=== PATIENT | female | born 1975 | race Caucasian/White ===

== ENCOUNTER 2018-01-03 12:35 | Outpatient (CLI) | payer BC ==
--- NOTE | 2018-01-03 15:02 | ULT ---
RIGHT LOWER EXTREMITY VENOUS ULTRASOUND WITH DOPPLER: History: Right leg pain. Edema. Comparison: None. Technique: Grayscale, color flow, doppler imaging and spectral waveform analysis performed of the rig ht lower extremity venous system. FINDINGS: There is compressibility, presence of flow, and augmentation in the common femoral vein, femoral vein , and popliteal vein. There is flow in the greater saphenous vein and profunda vein. There is lack of flow and lack of compressibility in the posterior tibial vein. IMPRESSION: Thrombus in the right lower extremity posterior tibial vein. Results of study discussed with Dr. Gayathri Wolfe -12-18 at 1:32 pm. POS: [facility]
== END 2018-01-03 12:36 | disposition home or self-care (01) ==
LOC: SCSULT 12:35
PROVIDERS: ATTEND Family Medicine
DX: M79.604 Pain in right leg (principal); I82.441 Acute embolism and thrombosis of right tibial vein

== ENCOUNTER 2018-01-04 09:21 | Emergency (ER) | payer BC ==
[~2018-01-04 09:21] MED LIST: Iopamidol 370 76% 100 ML VIAL ONE
[2018-01-04] MEDS ORDERED: methylPREDNISolone Sod Succ/PF 125 MG/2 ML VIAL ONE (09:45)
[2018-01-04] MEDS ORDERED: diphenhydrAMINE 50 MG/ML VIAL ONE (09:45)
[2018-01-04] MEDS ORDERED: Water For Inject, Bacteriostat 30 ML ONE (09:46)
[2018-01-04] MEDS ORDERED: Famotidine/PF 20 mg/2ml Vial ONE (09:47)
[2018-01-04 09:57] LABS: #Basophils 0.1 thou/uL (0.0-0.2); #Eosinphils 0.1 thou/uL (0.0-0.7); #Lymphocytes 2.5 thou/uL (1.20-3.40); #Monocytes 0.5 thou/uL (0.11-0.59); #Neutrophils 6.1 thou/uL (1.40-6.50); %Eosinophils 1.2 % (0.0-10.0); %Monocytes 5.3 % (0.0-10.0); %Neutrophils 65.6 % (42.0-75.0); Mean Corpuscular HGB CONC 35.1 g/dL (32.0-36.0); Mean Corpuscular Volume 88.3 fl (81.0-99.0); Platelet Count 245 thou/uL (130-400); RBC Distribution Width 10.9 % (11.5-14.5); Red Blood Cell (RBC) Count 4.85 mill/uL (4.20-5.40); White Blood Cell (WBC) Count 9.3 thou/uL (4.8-10.8)
[2018-01-04 10:08] LABS: ALT (SGPT) 15 U/L (8-55); AST (SGOT) 18 U/L (5-34); Alkaline Phosphatase 42 U/L (40-150); Anion Gap 12 mmol/L (10-20); BUN (Urea Nitrogen) 10 mg/dL (7.0-18.7); Bilirubin, Total 0.5 mg/dL (0.2-1.2); CK (CPK) 85 U/L (29-168); Calc. Creatinine Clearance 0 mL/min (70-130); Calcium 9.2 mg/dL (7.8-10.44); Carbon Dioxide 24 mmol/L (22-29); Chloride 107 mmol/L (98-107); Estimated GFR-MDRD Greater than 90; Globulin 3.3 g/dL (2.4-3.5); Glucose 118 mg/dL (70-105); Lipase 37 U/L (8-78); Protein, Total 7.3 g/dL (6.0-8.3); Sodium 139 mmol/L (136-145)
[2018-01-04 10:11] LABS: CKMB 0.8 ng/mL (0-6.6); Troponin I Less than 0.010 ng/mL (< 0.028)
[2018-01-04 12:38] LABS: Troponin I Less than 0.010 ng/mL (< 0.028)
--- NOTE | 2018-01-04 13:39 | CT ---
CT ARTERIOGRAM CHEST WITH IV CONTRAST AND 3D MIP IMAGING: HISTORY: Chest pain. DVT. Dyspnea. FINDINGS: There is good contrast opacification of the pulmonary arteries and thoracic aorta with normal branchi ng of the great vessels. No pleural fluid, pneumothorax, or mediastinal adenopathy. IMPRESSION: No CT evidence of pulmonary embolus. POS: [facility]
== END 2018-01-04 13:06 | disposition home or self-care (01) ==
LOC: SCSER 09:21
DX: R07.89 Other chest pain (principal); F32.9 Major depressive disorder, single episode, unspecified; Z79.01 Long term (current) use of anticoagulants
CPT/HCPCS: 36415; 71275; 80053; 82553; 83690; 84484; 85025; 93005; 96365; 96375; J1200; J2930; S0028

== ENCOUNTER 2018-03-30 15:50 | Outpatient (CLI) | payer BC ==
--- NOTE | 2018-03-30 17:28 | MRI ---
RIGHT SHOULDER MRI WITHOUT IV CONTRAST: 03/30/18 HISTORY: 42-year-old female with acute pain in the right shoulder and limited range of motion without associat ed injury. Multiplanar, multisequence MRI examination of the right shoulder is performed. Mild AC joint arthrosi s with downsloping of the lateral acromion and mild fat stranding in the subacromial subdeltoid bursa . No evidence for significant complete full thickness or retracted rotator cuff tear. The biceps tend on and subscapularis tendons appear intact. Rotator cuff muscles appear to be within normal limits of signal and volume. The visualized labrum is unremarkable. No evidence of acute osteochondral defect or abnormal marrow signal. IMPRESSION: Some AC joint arthrosis with downsloping of the lateral acromion and mild fat stranding in the subacr omial subdeltoid bursa. No evidence of complete or full thickness or retracted rotator cuff tear or l abral tear or other significant acute process. POS: [facility]
== END 2018-03-30 15:51 | disposition home or self-care (01) ==
LOC: SCSMRI 15:50
PROVIDERS: ATTEND Family Medicine
DX: M25.511 Pain in right shoulder (principal); M19.011 Primary osteoarthritis, right shoulder

== ENCOUNTER 2018-06-15 15:00 | Outpatient (CLI) | payer BC ==
--- NOTE | 2018-06-15 15:58 | ULT ---
PELVIC ULTRASOUND: HISTORY: Pelvic pain. Positive serum beta hCG with a value of 223. TECHNIQUE: Transabdominal endovaginal imaging of the pelvis is performed. The ovaries are interrogated with gra y-scale, color-flow, Doppler imaging, and spectral wave-form analysis. COMPARISON: 08/13/2015 FINDINGS: The uterus is identified, measuring 6 x 4.5 x 8.1 cm. Thickened homogeneous endometrium, measuring 2 cm. No evidence of a gestational sac, yolk sac, or pole. There is a small amount of simple fluid in the pelvis. The right ovary measures 3.2 x 2.2 x 2 cm. The left ovary measures 2 x 1.6 x 2.5 cm. Ovarian Doppler: There is vascular flow to both ovaries. IMPRESSION: 1. Simple free fluid in the pelvis, nonspecific. 2. No sonographic evidence of an intrauterine gestation. The endometrium is thickened. Differentia l considerations include an early intrauterine , given the patient's serum beta hCG of 223. 3. Other etiologies include a missed spontaneous or sonographically occult ectopic pregnanc y. Follow-up ultrasounds and serial beta hCGs are recommended. POS: [facility]
== END 2018-06-15 15:01 | disposition home or self-care (01) ==
LOC: SCSULT 15:00
PROVIDERS: ATTEND Family Medicine
DX: Z32.01 Encounter for pregnancy test, result positive (principal); R10.32 Left lower quadrant pain; R93.8 Abnormal findings on diagnostic imaging of other specified body structures
CPT/HCPCS: 76856

== ENCOUNTER 2018-07-24 17:08 | Emergency (ER) | payer BC ==
--- NOTE | 2018-07-24 18:46 | ULT ---
RIGHT LOWER EXTREMITY VENOUS DOPPLER WITH SPECTRAL ANALYSIS AND COLORFLOW EVALUATION: 07/24/2018 HISTORY: Right lower extremity pain. TECHNIQUE: Corcoran-scale, color-flow, Doppler evaluation, and spectral analysis of the right lower extremity venous structures is performed with 2D imaging. The right lower extremity common femoral vein, superficial femoral vein, popliteal vein, posterior tibial vein, most proximal greater saphenous vein, and profu nda femoral vein are imaged. FINDINGS: There is normal lumen compressibility, flow, and augmentation in the visualized deep venous structure s of the right lower extremity. On the prior study on 01/03/2018, there was absence of flow within t he right lower extremity posterior tibial vein; however, there is now flow within the right lower ext remity posterior tibial vein on today's exam. IMPRESSION: No evidence of deep venous thrombosis involving the visualized deep venous structures of the right lo wer extremity. POS: [facility]
== END 2018-07-24 18:25 | disposition home or self-care (01) ==
LOC: SCSER 17:08
DX: R20.2 Paresthesia of skin (principal)

== ENCOUNTER 2018-10-30 12:37 | Outpatient (CLI) | payer BC ==
--- NOTE | 2018-10-30 14:56 | MRI ---
MRI CERVICAL SPINE NONCONTRAST: History: Neck pain. Right arm radiculopathy. FINDINGS: Vertebral body heights are maintained. Straightening of the normal lordotic curvature of the cervical spine. Bone marrow signal is within normal limits. Desiccation of the disc at the C3-4 level. No focal disc herniation. Central canal and neural foramina are patent. IMPRESSION: No evidence of disc herniation or compression. POS: [facility]
== END 2018-10-30 12:38 | disposition home or self-care (01) ==
LOC: TBSIIMAG 12:37
PROVIDERS: ATTEND Family Medicine
DX: M54.12 Radiculopathy, cervical region (principal)
CPT/HCPCS: 72141

== ENCOUNTER 2018-10-31 12:41 | Outpatient (CLI) | payer BC | END 2018-10-31 12:42 | disposition home or self-care (01) | PROVIDERS: ATTEND Family Medicine | DX: R00.2 Palpitations (principal) | CPT/HCPCS: 93225; 93226 ==

== ENCOUNTER 2018-12-18 15:42 | Outpatient (CLI) | payer BC ==
[~2018-12-18 15:42] MED LIST changes: +Gadobenate Dimeglumine 529 MG/1 ML (20ML VIAL) ONE; -Iopamidol 370 76% 100 ML VIAL ONE
--- NOTE | 2018-12-18 20:15 | MRI ---
MRI CHEST WITH AND WITHOUT IV CONTRAST: Indications: History of right sided brachial plexopathy. CONTRAST: 15 mL MultiHance Comparison: Prior right upper extremity MRI examination, 03-30-18, MR cervical spine, 10-30-18. FINDINGS: No definite abnormal signal or enhancement is seen along the course of the right brachial plexus. No enlarged lymph nodes or mass is identified. Bone marrow signal intensity of the visualized thoracolum bar spine appears within normal limits. The signal involving the right shoulder girdle musculature ap pears within normal limits. IMPRESSION: No abnormality demonstrated involving the right brachial plexus. POS: [facility]
== END 2018-12-18 15:43 | disposition home or self-care (01) ==
LOC: SCSMRI 15:42
PROVIDERS: ATTEND Specialist
DX: G54.0 Brachial plexus disorders (principal)
CPT/HCPCS: 71552; A9577

== ENCOUNTER 2019-03-01 14:58 | Emergency (ER) | payer BC ==
--- NOTE | 2019-03-01 16:45 | ULT ---
VENOUS DOPPLER ULTRASOUND OF RIGHT LOWER EXTREMITY: DATE: 03/01/19 HISTORY: History of deep venous thrombosis in the right lower leg 1 year ago. Patient presents with right-side d cramping and elevated D-Dimer. TECHNIQUE: Corcoran scale ultrasound with color flow and spectral Doppler imaging of the deep venous system of the r ight lower extremity is performed. FINDINGS: There is good flow, compression, and augmentation noted in the right common femoral, femoral, deep fe moral, popliteal, posterior tibial, and greater saphenous veins. IMPRESSION: No evidence of deep venous thrombosis in the right lower extremity. POS: [facility]
== END 2019-03-01 16:16 | disposition home or self-care (01) ==
LOC: SCSER 14:58
DX: M79.661 Pain in right lower leg (principal); Z86.718 Personal history of other venous thrombosis and embolism; F32.9 Major depressive disorder, single episode, unspecified; Z79.899 Other long term (current) drug therapy
CPT/HCPCS: 36415; 80053; 83690; 85025; 85379

== ENCOUNTER 2020-03-17 08:03 | Outpatient (CLI) | payer BC ==
--- NOTE | 2020-03-17 08:57 | MRI ---
MRI CERVICAL SPINE WITHOUT CONTRAST: HISTORY: Occipital rouser, right-sided.. COMPARISON: None. FINDINGS: Straightening of normal cervical lordosis, unchanged. Appropriate T1 marrow signal intensity of the c ervical vertebra. Cervical spine vertebral body height is maintained. There is no fracture. No significant STIR hyperintensity to suggest vertebral body edema or ligamentous injury. Visualized brain parenchyma, cervicomedullary junction, cervical cord and the upper thoracic cord hav e normal size and signal intensity. C2-C3: No significant central canal stenosis or significant neural foraminal narrowing. C3-C4: No significant central canal stenosis or significant neural foraminal narrowing. C4-C5: Broad-based disc bulge with a superimposed central disc herniation along with inferior and sup erior disc extrusion. There is mild mass effect upon the left hemicord. Mild to moderate central canal stenosis. Mild right foraminal narrowing due to uncovertebral hypertrophy. Patent left neural. C5-C6: No significant central canal stenosis or significant neural foraminal. C6-C7: No significant central canal stenosis. Mild right foraminal narrowing due to uncovertebral hyp ertrophy. Patent left neural foramen. C7-T1: No significant central canal stenosis or significant neural foraminal narrowing. IMPRESSION: Broad-based disc bulge with a superimposed central disc herniation at C4-C5. Associated inferior and superior disc extrusion. There is mass effect upon the left hemicord without cord signal abnormality. Mild to moderate central canal stenosis. Transcribed Date/Time: 03/17/2020 9:05 AM
--- NOTE | 2020-03-17 10:29 | RAD ---
CERVICAL SPINE 3 VIEWS: HISTORY: Neck pain. Neuralgia. Headaches. FINDINGS: The cervical vertebrae maintain normal height and alignment. There is straightening of the lordotic curvature. Mild degenerative spurring is seen from the anterior vertebrae. The disk spaces are pres erved. Posterior elements appear normally aligned. IMPRESSION: 1. Mild straightening of the lordotic curvature. 2. Mild degenerative changes noted. POS: [facility]
== END 2020-03-17 08:04 | disposition home or self-care (01) ==
LOC: SCSMRI 08:03
PROVIDERS: ATTEND Nurse Practitioner Family
DX: M54.81 Occipital neuralgia (principal); M50.221 Other cervical disc displacement at C4-C5 level; M47.812 Spondylosis without myelopathy or radiculopathy, cervical region; M48.02 Spinal stenosis, cervical region; M50.80 Other cervical disc disorders, unspecified cervical region
CPT/HCPCS: 72040; 72141

== ENCOUNTER 2021-04-24 10:12 | Outpatient (CLI) | payer BC | END 2021-04-24 10:13 | disposition home or self-care (01) | LOC: ULT 10:12 | PROVIDERS: ATTEND Family Medicine | DX: M79.604 Pain in right leg (principal) ==